=== PATIENT | female | born 1970 | race Caucasian/White ===

== ENCOUNTER 2023-04-01 06:20 | Emergency (ER) | payer OTHER, SELFPAY ==
--- NOTE | ~2023-04-01 | CT_ITS ---
EXAMINATION: CT ABDOMEN AND PELVIS WITHOUT CONTRAST CLINICAL INFORMATION: Abdominal pain with new right upper quadrant herniation COMPARISON: Upper GI 07/11/2020, CT abdomen pelvis 05/25/2015 TECHNIQUE: Multidetector volumetric imaging was performed from the superior aspect of the liver through the pubic symphysis. Sagittal and coronal reformatted images were obtained on the technologist's workstation. This CT examination was performed using dose optimization techniques as appropriate, variously including the following: *Automated exposure control *Adjustment of mA and/or kV according to patient size (this includes techniques or standardized protocols for targeted exams where dose is matched to indication/reason for exam; i.e. extremities or head) *Use of iterative reconstruction technique DLP: 506 mGy-cm FINDINGS: LUNG BASES: The visualized lung bases are unremarkable aside from increase in scarring/atelectasis since 2015. LIVER, GALLBLADDER, AND BILIARY TREE: The liver is normal in size and shape but demonstrates decreased attenuation consistent with hepatic steatosis. No focal hepatic lesion or biliary ductal dilatation is present. Status post cholecystectomy PANCREAS: Unremarkable. SPLEEN: Unremarkable. ADRENAL GLANDS: Unremarkable. KIDNEYS AND URETERS: The kidneys are normal in size, shape, and attenuation. A 2.4 cm benign Bosniak class II cyst is present in the upper pole the left kidney which measures water density with faint area of dependent crescentic calcification in the wall. There is a small 2 mm punctate nonobstructing calculus seen in the right kidney (2:27). No hydronephrosis, hydroureter, or additional calculi seen. No perinephric stranding. BLADDER: Unremarkable. GASTROINTESTINAL TRACT: The small and large bowel are unremarkable. The appendix is unremarkable. ABDOMINAL WALL: There is a small right-sided epigastric hernia present which is new when compared to the 2015 study. This is present at the site of some prior thinning of the rectus muscle probably secondary to the patient's cholecystectomy. Some mild inflammatory changes seen in the fat surrounding this area. LYMPH NODES: Normal. VASCULAR: Unremarkable. PELVIC VISCERA: Status post hysterectomy. An abnormal adnexal mass or free intraperitoneal fluid is not seen. OSSEOUS STRUCTURES: Unremarkable. There are mild degenerative changes most prominent at L5-S1. CT/CT abdomen pelvis wo IV con IMPRESSION: 1. There is a new hernia through the medial right rectus muscle with surrounding inflammatory change as described above. The hernia sac contains only fat. 2. Incidental note made of hepatic steatosis, cholecystectomy, benign Bosniak class II left renal cyst which needs no follow-up or additional imaging and a punctate nonobstructing right renal calculus. Fleischner guidelines were followed.
[2023-04-01 06:24] VITALS: BP 151/105; PULSE 96; RESP 20; TEMP 36.2; O2SAT 97; BMI 27.4
--- NOTE | 2023-04-01 07:07 | ED.GENADULT ---
HPI - General Adult General Chief complaint: Abdominal Pain Stated complaint: Abdominal pain lump on stomache Time Seen by Provider: 04/01/23 07:07 Source: patient and dough sheeter Mode of arrival: ambulatory Limitations: language barrier History of Present Illness HPI narrative: Patient is a 53 year old assigned female at with a history of gallbladder removal 17 years ago presenting to the emergency department today with right upper quadrant abdominal pain and a new hernia. Patient states that yesterday she felt a new tear / sharp pain in her right upper quadrant and now has a new swollen area there. Patient denies any dizziness, lightheadedness, nausea, vomiting, fever, chills, blurry vision, double vision, loss of vision, chest pain, difficulty breathing, shortness of breath, back pain, night sweats, pain with urination, increased urinary frequency, increased urinary urgency, blood in her urine or stool, syncope or a near syncopal episode, recent trauma or falls, bowel incontinence, bladder incontinence, bowel retention, bladder retention, or any other complaints at this time. Onset (ago): day(s) (1) Location: abdomen Radiation: non-radiation Severity: mild Severity scale (1-10): 4 Quality: aching Pain Consistency: constant Relieving factors: none Exacerbating factors: none Associated symptoms: denies other symptoms Treatments prior to arrival: none Related Data Home Medications Medication Instructions Recorded Confirmed albuterol sulfate 90 mcg/actuation 2 inh inhalation Q4-6H PRN 12/03/20 12/03/20 breath activated powder inhaler Allergies Allergy/AdvReac Type Severity Reaction Status Date / Time iodine [Iodine] Allergy Mild UNKNOWN Verified 04/01/23 06:24 duloxetine [Cymbalta] Allergy Unknown headaches, Verified 04/01/23 06:24 nausea Fish Containing Products Allergy Unknown RASH Verified 04/01/23 06:24 Seafood Allergy Mild UNKNOWN Uncoded 04/01/23 06:24 Review of Systems Constitutional: Constitutional: Reports no additional constitutional complaints, Denies chills, Denies fever(s) and Denies night sweats Eyes: Eyes: Reports no additional eye complaints, Denies blurry vision, Denies change in vision, Denies diplopia, Denies eye discharge, Denies loss of vision and Denies eye pain ENT: Denies dizziness Cardiovascular: Cardiovascular: Reports no additional cardiovascular complaints, Denies chest pain, Denies lightheadedness, Denies Loss of Consciousness and Denies dyspnea Respiratory: Respiratory: Reports no additional respiratory complaints and Denies dyspnea Gastrointestinal: Gastrointestinal: Reports no additional gastrointestinal complaints, Reports abdominal pain, Denies melena, Denies hematochezia, Denies change in bowel habits and Denies change in stool character Genitourinary: Genitourinary: Denies hematuria, Denies urinary frequency, Denies dysuria, Denies urinary incontinence, Denies urinary hesitancy and Denies urinary urgency Musculoskeletal: Musculoskeletal: Reports no additional musculoskeletal complaints, Denies numbness and Denies tingling Neurologic: Denies dizziness, Denies loss of vision, Denies numbness and Denies tingling Psychiatric: Psychiatric: Reports no additional psychiatric complaints Endocrine: Endocrine: Reports no additional endocrine complaints Hematologic/Lymphatic: Hematologic/Lymphatic: Reports no additional hematologic/lymphatic complaints Allergic/Immunologic: Allergic/Immunologic: Reports no additional allergic/immunologic complaints PMFSH Past Medical History Attestation statement: The following information was validated with the patient. Source: old records reviewed and nursing notes reviewed Medical History Celiac disease Fatty liver Mild asthma Surgical History History of laparoscopic cholecystectomy History of total abdominal hysterectomy and bilateral salpingo-oophorectomy Social History Social History Alcohol intake: never Smoked in Last 30 Days: No Use of substances other than those prescribed or required for medical reasons: No Advance Directives: No Advance Directives Information Provided: Yes Patient : No Physical Exam ED Vital Signs: Vital Signs - 24 hr 04/01/23 06:24 04/01/23 08:25 Temperature 97.2 F 98.3 F Pulse Rate 96 74 Respiratory Rate 20 18 Blood Pressure 151/105 H 119/79 Pulse Oximetry 97 97 Oxygen Delivery Method Room Air Room Air BMI result Body Mass Index 27.4 Const General: cooperative, no acute distress, alert and awake Nutritional Appearance: well nourished Orientation/consciousness: patient oriented x3 Limitations: no limitations HENMT Head: Yes normal to inspection and Yes atraumatic Ears: hearing grossly normal bilaterally and external ears normal General nose exam: Normal external nose present, no nasal discharge noted and no epistaxis Face and sinus: Yes normal facial exam, No abrasion and No laceration Mouth: Normal oral and palatal mucosa present, no drooling and no muffled voice Eyes General: appearance normal, both eyes and all related structures Periorbital: periorbital findings normal Eyelids: Yes eyelids normal Conjunctivae: conjunctivae normal Pupils: Equal, round and reactive pupils present EOM: EOMs intact bilaterally Neck Neck: Yes normal visual inspection, Yes full ROM and Yes no lymphadenopathy Chest Chest palpation & inspection: normal inspection of the chest Resp Effort & Inspection: normal respiratory effort and able to speak in complete sentences GI Other: reducible hernia present to the RUQ Palpation (GI): Soft to palpation, not firm, nontender, no guarding and not rigid Neuro General: patient oriented x3 and moves all extremities Cranial nerves: Yes Equal, round and reactive pupils present Cognition (Neuro): normal cognition Motor exam (neuro): 5/5 motor strength present throughout Sensory Exam: Normal double simultaneous stimulation for sensation Coordination: [id number] test normal Extrem General: Yes normal to inspection, Yes full ROM and Yes capillary refill normal Psych Appearance: grossly normal Mental Status: mental status grossly normal Affect: normal affect Attitude: cooperative Thought process: Normal thought process present Thought content: Normal thought content present Insight: Good insight present (Psych) Medications Administered Discontinued Medications Generic Name Dose Route Start Last Admin Trade Name Bola PRN Reason Stop Dose Admin Morphine Sulfate 4 mg 04/01/23 07:18 04/01/23 08:24 Morphine Sulfate 4 Mg/Ml Cartridge IVPUSH 04/01/23 07:19 4 mg ONCE ONE Administration Protocol Ondansetron HCl 4 mg 04/01/23 07:18 04/01/23 07:37 Ondansetron Hcl 4 Mg/2 Ml Vial IVPUSH 04/01/23 07:19 4 mg ONCE ONE Administration Medical Decision Making Medical Decision Making MDM Narrative: Patient is a 53 year old assigned female at with a history of asthma and a gallbladder removal 17 years ago presenting to the emergency department today with RUQ pain. Patient's physical exam showed a reducible RUQ hernia. Patient's blood work was unremarkable. Patient's abdominal CT showed a new fat containing hernia in the right upper quadrant but was otherwise unremarkable. I explained my physical exam findings as well as all test results to the patient. I answered all questions asked by the patient . I stressed the importance of the patient taking her medication as prescribed. I stressed the importance of the patient following up with her primary care provider and a general surgeon. I stressed the importance of the patient returning to the emergency department immediately if her symptoms were to worsen or if she were to develop any dizziness, shortness of breath, difficulty breathing, chest pain, blurry vision, loss of vision, nausea, vomiting, abdominal pain, fever, chills, back pain, or any other complaints. Patient verbalized agreement and understanding with this treatment plan and discharge. Differential Diagnosis Differential Diagnoses: The differential diagnosis associated with the presentation includes RUQ hernia Lab Data MDM Lab Attestation statement: I reviewed the patient's lab results. 04/01/23 07:28 04/01/23 07:28 Labs: Lab Results 04/01/23 04/01/23 Range/Units 07:28 07:28 WBC 6.9 (4.8-10.8) X10*3/uL RBC 4.70 (4.20-5.50) X10*6/uL Hgb 13.2 (12.0-16.0) g/dl Hct 42.5 (37.0-47.0) % MCV 90.4 (80.0-98.0) fL MCH 28.1 (27.0-33.0) pg MCHC 31.1 (31.0-35.0) g/dl RDW 13.3 (11.0-16.0) % Plt Count 185 (160-400) X10*3/uL MPV 12.1 (9.4-12.3) fL Immature Gran % (Auto) 0.1 (0.0-0.4) % Neut % (Auto) 62.2 (45-73) % Lymph % (Auto) 29.2 (20-40) % [place] % (Auto) 5.0 (2-11) % Eos % (Auto) 3.1 (0-4) % Baso % (Auto) 0.4 (0-2) % Lymph # (Auto) 2.0 (1.2-4.9) X10*3/uL [place] # (Auto) 0.3 (0.1-1.2) X10*3/uL Eos # (Auto) 0.2 (0.0-0.4) X10*3/uL Baso # (Auto) 0.0 (0.0-0.2) X10*3/uL Abs Immat Gran (auto) 0.01 (0.00-0.03) X10*3/uL Absolute Neuts (auto) 4.3 (2.0-8.3) x10*3/uL Absolute Nucleated RBC 0.000 (0.0-0.012) X10*3/uL Nucleated RBC % (auto) 0.0 (0.0-0.2) /100WBC Smear Tech's Comments VERIFIED Sodium 143 (135-145) mmol/L Potassium 4.2 (3.3-5.1) mmol/L Chloride 110 H (96-108) mmol/L Carbon Dioxide 27 (22-29) mmol/L Anion Gap 10 L (12-20) BUN 11 (9-16) mg/dL Creatinine 0.72 (0.5-1.4) mg/dL Estim Creat Clear Calc 100.0 Estimated GFR > 60 Random Glucose 103 (60-115) mg/dL Calcium 9.5 (8.4-10.2) mg/dL Total Bilirubin 1.1 H (0.0-1.0) mg/dL AST 40 H (5-31) U/L ALT 39 H (0-31) U/L Alkaline Phosphatase 101 (39-117) U/L Total Protein 7.2 (6.5-8.0) g/dL Albumin 4.3 (3.5-5.0) g/dL Independent Interpretation I performed an independent interpretation of an: CT Scan Interpretation: My interpretation is in agreement with the radiologist's impression of this imaging study. EXAMINATION: CT ABDOMEN AND PELVIS WITHOUT CONTRAST? CLINICAL INFORMATION: Abdominal pain with new right upper quadrant herniation? COMPARISON: Upper GI 07/11/2020, CT abdomen pelvis 05/25/2015 TECHNIQUE: Multidetector volumetric imaging was performed from the superior aspect of the liver through the pubic symphysis. Sagittal and coronal reformatted images were obtained on the technologist's workstation.? This CT examination was performed using dose optimization techniques as appropriate, variously including the following: *Automated exposure control *Adjustment of mA and/or kV according to patient size (this includes techniques or standardized protocols for targeted exams where dose is matched to indication/reason for exam; i.e. extremities or head) *Use of iterative reconstruction technique DLP: 506 mGy-cm FINDINGS: LUNG BASES: The visualized lung bases are unremarkable aside from increase in scarring/atelectasis since 2014.? LIVER, GALLBLADDER, AND BILIARY TREE: The liver is normal in size and shape but demonstrates decreased attenuation consistent with hepatic steatosis. No focal hepatic lesion or biliary ductal dilatation is present. Status post cholecystectomy? PANCREAS: Unremarkable.? SPLEEN: Unremarkable.? ADRENAL GLANDS: Unremarkable.? KIDNEYS AND URETERS: The kidneys are normal in size, shape, and attenuation. A 2.4 cm benign Bosniak class II cyst is present in the upper pole the left kidney which measures water density with faint area of dependent crescentic calcification in the wall. There is a small 2 mm punctate nonobstructing calculus seen in the right kidney (2:27). No hydronephrosis, hydroureter, or additional calculi seen. No perinephric stranding. ? BLADDER: Unremarkable.? GASTROINTESTINAL TRACT: The small and large bowel are unremarkable. The appendix is unremarkable.? ABDOMINAL WALL: There is a small right-sided epigastric hernia present which is new when compared to the 2015 study. This is present at the site of some prior thinning of the rectus muscle probably secondary to the patient's cholecystectomy. Some mild inflammatory changes seen in the fat surrounding this area. LYMPH NODES: Normal. VASCULAR: Unremarkable. PELVIC VISCERA: Status post hysterectomy. An abnormal adnexal mass or free intraperitoneal fluid is not seen.? OSSEOUS STRUCTURES: Unremarkable. There are mild degenerative changes most prominent at L5-S1. CT/CT abdomen pelvis wo IV con IMPRESSION: 1.? There is a new hernia through the medial right rectus muscle with surrounding inflammatory change as described above. The hernia sac contains only fat. 2.? Incidental note made of hepatic steatosis, cholecystectomy, benign Bosniak class II left renal cyst which needs no follow-up or additional imaging and a punctate nonobstructing right renal calculus. ? Fleischner guidelines were followed. Dictated By: Marc Greenberg MD Signed By: Electronically signed by Marc Greenberg MD 04/01/23 1481 Discharge Plan Discharge Clinical Impression: Hernia Patient Disposition: Home, Self-Care Instructions: Incisional Hernia (DC) Additional Instructions: Follow up with your primary care provider and a general surgeon. Return to the emergency department immediately if your symptoms worsen or if you develop any dizziness, shortness of breath, difficulty breathing, chest pain, blurry vision, loss of vision, nausea, vomiting, abdominal pain, fever, chills, back pain, or any other complaints. Dusty un seguimiento con forrester proveedor de atenci?n primaria y un cirujano general. Regrese a la mavis de emergencias de inmediato si rolo s?ntomas empeoran o si presenta mareos, dificultad para respirar, dolor de pecho, visi?n borrosa, p?rdida de la visi?n, n?useas, v?mitos, dolor abdominal, fiebre, escalofr?os, dolor de espalda o cualquier otras quejas. Prescriptions: No Action albuterol sulfate 90 mcg/actuation aerosol powdr breath activated 2 inh inhalation Q4-6H PRN Referrals: [facility] [place] [facility] [place] [facility] [Provider Group] (Call to establish and follow up with a general surgeon. Llame para establecer y hacer un seguimiento con un cirujano general.) Lupe Weller MD [Primary Care Provider] - Stand Alone Forms: Work/School Release Print Language: Occitan
[2023-04-01 07:35] LABS: Basophils Percent Auto 0.4 % (0-2); Eosinophils Absolute Auto 0.2 X10*3/uL (0.0-0.4); Eosinophils Percent Auto 3.1 % (0-4); Hematocrit 42.5 % (37.0-47.0); Hemoglobin 13.2 g/dl (12.0-16.0); Imm Gran Abs Auto 0.01 X10*3/uL (0.00-0.03); Imm Gran Pct Auto 0.1 % (0.0-0.4); Lymphocytes Percent Auto 29.2 % (20-40); MANUAL DIFF FLAG SCAN; Mean Corpuscular HGB Conc 31.1 g/dl (31.0-35.0); Mean Corpuscular Hemoglobin 28.1 pg (27.0-33.0); Mean Corpuscular Volume 90.4 fL (80.0-98.0); Mean Platelet Volume 12.1 fL (9.4-12.3); Monocytes Absolute Auto 0.3 X10*3/uL (0.1-1.2); Neutrophils Absolute Auto 4.3 x10*3/uL (2.0-8.3); Neutrophils Percent Auto 62.2 % (45-73); Platelet Count 185 X10*3/uL (160-400); Red Cell Distribution Width 13.3 % (11.0-16.0); SCAN SMEAR FLAG 1; White Blood Count 6.9 X10*3/uL (4.8-10.8)
[2023-04-01] MEDS: ondansetron HCL 4 MG/2 ML VIAL IVPUSH (07:37)
--- NOTE | 2023-04-01 07:38 | PC.NURSE ---
patient a&ox3, c/o mid abdominal pain, painful upon palpation, + bs, last BM today which pt states was normal, iv inserted, labs drawn, pt medicated with zofran- pharmacy called for missing morphine which they will fill shortly, call vaz within reach, will continue to monitor
[2023-04-01 07:58] LABS: Alanine Aminotransferase 39 U/L (0-31); Albumin Level 4.3 g/dL (3.5-5.0); Alkaline Phosphatase 101 U/L (39-117); Anion Gap 10 (12-20); Aspartate Amino Transferase 40 U/L (5-31); Bilirubin Total 1.1 mg/dL (0.0-1.0); Blood Urea Nitrogen 11 mg/dL (9-16); Calcium 9.5 mg/dL (8.4-10.2); Carbon Dioxide 27 mmol/L (22-29); Chloride 110 mmol/L (96-108); Estimated Glomerular Filt Rate > 60; Glucose Random 103 mg/dL (60-115); Potassium 4.2 mmol/L (3.3-5.1); Sodium 143 mmol/L (135-145); Total Protein 7.2 g/dL (6.5-8.0)
[2023-04-01] MEDS: Morphine Sulfate 4 MG/ML CARTRIDGE IVPUSH (08:24)
[2023-04-01 08:25] VITALS: BP 119/79; PULSE 74; RESP 18; TEMP 36.8; O2SAT 97
--- NOTE | 2023-04-01 08:26 | PC.NURSE ---
pt medicated with morphine for pain per order
[2023-04-01 08:39] LABS: SLIDE REVIEW VERIFIED
== END 2023-04-01 11:35 | disposition home or self-care (01) ==
PROVIDERS: Physician Assistant Medical; Emergency Provider Emergency Medicine Emergency Medical Services; PCP Internal Medicine
DX: K46.9 Unspecified abdominal hernia without obstruction or gangrene (principal); R10.11 Right upper quadrant pain; K76.0 Fatty (change of) liver, not elsewhere classified
CPT/HCPCS: 36415; 74176; 80053; 85025; 96374; 96375; 99284; J2270; J2405

== ENCOUNTER → 2023-04-10 10:21 | Outpatient (BNVA) | payer OTHER, SELFPAY | PROVIDERS: PCP Internal Medicine; Visit Provider Surgery | DX: K43.2 Incisional hernia without obstruction or gangrene (principal) | CPT/HCPCS: 99202 ==

== ENCOUNTER 2023-04-29 07:02 | Day surgery (SDC) | payer OTHER, SELFPAY ==
[2023-04-27 12:31] VITALS: BMI 28.9
--- NOTE | 2023-04-28 09:20 | HO.ANESPROP2 ---
Documented by User: Tammy Bunn NP 04/28/23 09:23 HPI - Anesthesia Eval Consult details Narrative: 53yo F for Hernia Repair Incisional with mesh PMFSH Active Problems Active Problems: All Active Problems (Updated 04/10/23 @ 10:47 by Aubrey Power MD) Incisional hernia (Acute) Fatty liver (Acute) Celiac disease (Acute) Mild asthma (Acute) Past Medical History Medical History Celiac disease Fatty liver Mild asthma Family History Family History Maternal Uncle Bladder cancer, Onset Age: 80 Surgical History Surgical History History of laparoscopic cholecystectomy History of total abdominal hysterectomy and bilateral salpingo-oophorectomy Social History Social History Alcohol intake: never Patient Tobacco Use Status: Never used Tobacco Second Hand Smoke Exposure: No Meds Allergies Allergy/AdvReac Type Severity Reaction Status Date / Time iodine [Iodine] Allergy Mild UNKNOWN Verified 04/10/23 10:29 duloxetine [Cymbalta] Allergy Unknown headaches, Verified 04/10/23 10:29 nausea Fish Containing Products Allergy Unknown RASH Verified 04/10/23 10:29 Home Medications Medication Instructions Recorded Confirmed Last Taken Type albuterol sulfate 90 mcg/actuation 2 inh inhalation Q4-6H PRN 12/03/20 04/27/23 Unknown History breath activated powder inhaler Shortness Of Breath Exam Exam Date and Time: April 28, 2023 0920 Height,Weight and Vital Signs: Height 5 ft 8 in Weight 86.183 kg Pertinent Lab Results Pertinent Lab Results: Laboratory Tests 04/01/23 04/01/23 07:28 07:28 WBC 6.9 Hgb 13.2 Hct 42.5 Plt Count 185 Sodium 143 Potassium 4.2 Chloride 110 H Carbon Dioxide 27 BUN 11 Creatinine 0.72 Assessment and Plan Assessment Anesthesia Assessment: Chart Reviewed Documented by User: Errol Pollard MD 04/29/23 17:31 PMF Past Medical History Medical History Celiac disease Fatty liver Mild asthma Functional capacity: independent ambulation Family History Family History Maternal Uncle Bladder cancer, Onset Age: 80 Family history of problems with anesthesia: No Surgical History Surgical History History of laparoscopic cholecystectomy History of total abdominal hysterectomy and bilateral salpingo-oophorectomy History of Problems with Anesthesia: No Social History Social History Alcohol intake: never Patient Tobacco Use Status: Never used Tobacco Second Hand Smoke Exposure: No Meds Allergies Allergy/AdvReac Type Severity Reaction Status Date / Time iodine [Iodine] Allergy Mild UNKNOWN Verified 04/10/23 10:29 duloxetine [Cymbalta] Allergy Unknown headaches, Verified 04/10/23 10:29 nausea Fish Containing Products Allergy Unknown RASH Verified 04/10/23 10:29 Home Medications Medication Instructions Recorded Confirmed Last Taken Type albuterol sulfate 90 mcg/actuation 2 inh inhalation Q4-6H PRN 12/03/20 04/27/23 Unknown History breath activated powder inhaler Shortness Of Breath Exam Airway Mallampati Class: IV TM Dist: >3cm Neck ROM: Full Loose/Missing/Broken Teeth: Yes Assessment and Plan Assessment Anesthesia Assessment: Anesthesia Plan Discussed Final Anesthetic Review Family History of Problems with Anesthesia: No History of Problems with Anesthesia: No NPO: Yes ASA Class: III Final Preanesthetic Review: Meds/Allgs Chart Reviewed, Consent Obtained/Reviewed and Anes Risks/Benef Reviewed Patient Risk: Intermediate Procedure Risk: Intermediate Anesthetic Plan Anesthetic Plan: GA Disposition: Standard PACU
[2023-04-29 08:13] VITALS: BP 134/76; PULSE 75; RESP 16; TEMP 36.1; O2SAT 99
[2023-04-29] MEDS: Lactated Ringers 1,000 ML 100 ML IVCONT (08:15)
--- NOTE | 2023-04-29 08:51 | MHC.SHP ---
Pre-Procedural Eval Section A Date of Service: 04/29/23 The patient is an INPATIENT: No Changes since office visit: Yes Patient answered all questions; No Cold of Flu in the past 2 weeks, No New Medical Problems and No Changes in Medication The History & Physical has been completed within 30 days and I have reviewed it.: Yes Section B Chief Complaint: Incisional hernia without obstruction or gangrene Allergies: Allergies Allergy/AdvReac Type Severity Reaction Status Date / Time iodine [Iodine] Allergy Mild UNKNOWN Verified 04/10/23 10:29 duloxetine [Cymbalta] Allergy Unknown headaches, Verified 04/10/23 10:29 nausea Fish Containing Products Allergy Unknown RASH Verified 04/10/23 10:29 Plan Diagnosis/Plan: Unchanged I have reviewed the history and physical and performed a pertinent physical examination on my patient. No changes have occurred unless specified. Time Spent With Patient Time: Total time managing care of this patient today ____ minutes.
--- NOTE | 2023-04-29 08:54 | W.PM.OPN ---
Operative Note Operative Note Date of Service: 04/29/23 Narrative: Preoperative diagnosis: Incisional hernia right upper quadrant abdomen Postoperative diagnosis: Same Procedure: Repair of incisional hernia right upper quadrant abdomen, 4 cm diameter reducible Surgeon: Aubrey Power MD Data Warehouse Administrator: Nya Villagomez PA-C Anesthesia: General LMA Indications for procedure: 53-year-old female patient presenting approximately 17 years following a laparoscopic cholecystectomy now with a palpable lump in the epigastric incision. The lump increases in size with lifting and straining and reduces with light pressure. On examination patient has a palpable hernia increases with Valsalva. Operative findings: Incisional hernia right upper quadrant measuring 4 cm in diameter, reducible Specimen: None Estimated blood loss: Less than 2 mL Complications: None Procedure details: Patient was brought to the OR and placed in a supine position. After administering general anesthesia patient's abdomen was prepped with ChloraPrep and draped in a sterile fashion. A surgical time-out was called the consent confirmed. Patient received preoperative antibiotics and Venodyne boots were in place. Local anesthesia was infiltrated in a transverse fashion directly over the epigastric incision extending to the right of midline. Incision was made with a scalpel carried out through subcutaneous tissue. Dissection was continued down using electrocautery up to superior rectus sheath. The hernia was identified emanating from the epigastric incision. Hernia sac was then dissected free from the surrounding subcutaneous tissue. The hernia defect was further dissected using electrocautery. The contents were returned to the abdominal cavity. A preperitoneal space was then created using blunt dissection. A 6.4 cm round Ventralex mesh was then obtained. The circular underlay was then deployed into the preperitoneal space. This was then secured to the fascia using [id number] 1 Tycron sutures. Fascia was closed over the mesh. Prior to closure of the mesh completely 6 mL of Zenrelef was instilled into the preperitoneal space. Fascia was then completely closed. Wounds were then irrigated with saline solution and suctioned dry. Wounds were checked for hemostasis. Deep subcutaneous tissue was then reapproximated using interrupted 3-0 Polysorb sutures. Dermis were then reapproximated using 3-0 Polysorb sutures. Skin was closed using a running subcuticular 4-0 Polysorb suture. The patient tolerated the procedure well. Sponge, instrument, and needle counts reported as correct. The patient was transferred to PACU in stable condition.
[2023-04-29] MEDS: Acetaminophen 1,000 MG/100 ML PIGGYBACK 400 MG IV (10:29)
[2023-04-29 10:38] VITALS: BP 123/76; PULSE 83; RESP 18; O2SAT 94
[2023-04-29 10:53] VITALS: BP 115/76; PULSE 81; RESP 18; O2SAT 96
[2023-04-29 11:05] VITALS: BP 121/82; PULSE 79; RESP 16; TEMP 36.4; O2SAT 98
== END 2023-04-29 11:27 | disposition home or self-care (01) ==
PROVIDERS: PCP Internal Medicine; Visit Provider Surgery
PROC: (CPT 49593; principal; 2023-04-29 09:10)
DX: K43.2 Incisional hernia without obstruction or gangrene (principal); K90.0 Celiac disease; K76.0 Fatty (change of) liver, not elsewhere classified; J45.909 Unspecified asthma, uncomplicated; Z90.49 Acquired absence of other specified parts of digestive tract; Z79.899 Other long term (current) drug therapy; Z88.8 Allergy status to other drugs, medicaments and biological substances; Z91.041 Radiographic dye allergy status
CPT/HCPCS: 49593; C1781; C9088; J0131; J0690; J1100; J2250; J2405; J3010

== ENCOUNTER → 2023-05-05 12:51 | Outpatient (BNVA) | payer OTHER, SELFPAY | PROVIDERS: PCP Internal Medicine; Visit Provider Surgery ==

== ENCOUNTER 2023-06-05 10:31 | Outpatient (AMB) | payer SELFPAY ==
--- NOTE | 2023-06-05 10:47 | MHC.OFFVIS ---
Intake Vital Signs 06/05/23 10:53 Height 5 ft 8 in Weight 193 lb BMI 29.3 BP 175/92 H Blood Pressure Location Lt brachial Position Sitting Pulse 91 Intake Visit Reasons: S/P Incisional Hernia Repair, 1 mo follow up Intake Note: Patient is seen in office for one month follow up visit, post incisional hernia repair. Patient c/o: denies any concerns at the time of visit Residential Subcontractor Required: No Accompanied by: Self / Same As Patient Allergies iodine [Iodine] Allergy (Mild, Verified 06/05/23 10:53) UNKNOWN duloxetine [Cymbalta] Allergy (Unknown, Verified 06/05/23 10:53) headaches, nausea Fish Containing Products Allergy (Unknown, Verified 06/05/23 10:53) RASH HPI HPI Comments History of Present Illness Details 53-year-old female status post repair of an incisional hernia of the upper abdomen. She returns today 1 month following the surgery for wound check. She feels well and denies any ongoing incisional pain. [facility] Medical History (Updated 04/10/23 @ 10:47 by Aubrey Power MD) Celiac disease Fatty liver Mild asthma Surgical History History of incisional hernia repair (04/29/23) History of laparoscopic cholecystectomy History of total abdominal hysterectomy and bilateral salpingo-oophorectomy Family History Maternal Uncle Bladder cancer, Onset Age: 80 Social History Alcohol intake: never Patient Tobacco Use Status: Never used Tobacco Second Hand Smoke Exposure: No Physical Exam Vital Signs: Last Vital Signs Pulse 91 06/05/23 10:53 BP 175/92 H 06/05/23 10:53 BMI result Body Mass Index 29.3 Const General: no acute distress Nutritional Appearance: well nourished Resp Effort & Inspection: normal respiratory effort GI Other: Incision in the right upper quadrant is clean, dry, and intact without redness or discharge. No hernia noted with Valsalva maneuvers. Assessment & Plan Assessment & Plan (1) Incisional hernia: Code(s): K43.2 - Incisional hernia without obstruction or gangrene Plan 53-year-old female status post repair of an incisional hernia 1 month ago. She tolerated the procedure well and her wounds are healing nicely. She may return to normal activity without restrictions. She should continue to wear the abdominal binder if doing heavy lifting at work. She should follow up as needed. Coding Level of Care Code Global (24170) Diagnoses Incisional hernia K43.2
[2023-06-05 10:53] VITALS: BP 175/92; PULSE 91; BMI 29.3
== END 2023-06-05 10:58 | disposition home or self-care (01) ==
PROVIDERS: PCP Internal Medicine; Visit Provider Surgery
DX: K43.2 Incisional hernia without obstruction or gangrene (principal)
CPT/HCPCS: 99212

== ENCOUNTER → 2023-06-05 10:31 | Outpatient (BNVA) | payer OTHER, SELFPAY | PROVIDERS: PCP Internal Medicine; Visit Provider Surgery | DX: K43.2 Incisional hernia without obstruction or gangrene (principal) | CPT/HCPCS: 99212 ==